=== PATIENT | male | born 1985 | race Caucasian/White ===

== ENCOUNTER 2016-09-24 15:02 | Emergency (ER) | payer BC ==
[2016-09-24 15:42] VITALS: BP 155/77
--- NOTE | 2016-09-24 15:53 | UC ---
Respiratory Complaint HPI - HPI Summary HPI Summary: Patient complains of sore throat, congestion, muscle aches, cough and sinus pressure for 2 days. Fever at 101.2 yesterday. Today 99.2. He admits to using cocaine for the first time 3 days ago and is wondering if that is what is causing his symptoms. States he has not taken anything for the symptoms. Flu was positive. - History of Current Complaint Chief Complaint: UCRespiratory Stated Complaint: COUGH,SORE THROAT,FEVER,CHILLS Hx Obtained From: Patient Onset/Duration: Sudden Onset Timing: Constant Severity Initially: Moderate Severity Currently: Moderate Pain Intensity: 5 Pain Scale Used: 0-10 Numeric Character: Cough: Nonproductive Associated Signs And Symptoms: Positive: Fever, Pleuritic Chest Pain, Wheezing, URI - Risk Factors Pulmonary Embolism Risk Factors: Negative Cardiac Risk Factors: Negative Pseudomonas Risk Factors: Negative Tuberculosis Risk Factors: Negative - Allergies/Home Medications Allergies/Adverse Reactions: Allergies Allergy/AdvReac Type Severity Reaction Status Date / Time Amoxicillin Allergy Hives Verified 09/24/16 15:32 Red Dye Allergy Hives Verified 09/24/16 15:32 Home Medications: Home Medications Hydrocodone-Acetaminophen [Vicodin 5-300 mg] 1 tab PO PRN 09/24/16 [History] Ibuprofen TAB* [Advil TAB*] 200 mg PO Q6H PRN 09/24/16 [History Confirmed ] Melatonin 1 mg PO BEDTIME 09/24/16 [History Confirmed 09/24/16] PMH/Surg Hx/FS Hx/Imm Hx Previously Healthy: Yes - Surgical History Surgical History: Yes Surgery Procedure, Year, and Place: circumcision age 21 yo - Family History Known Family History: Positive: None - Social History Occupation: Employed Full-time Lives: With Family Alcohol Use: Rare Alcohol Amount: once a month Substance Use Type: Cocaine, Marijuana Substance Use Comment - Amount & Last Used: occasional use, THIS WEEK WAS THE FIRST TIME HE EVER USED COCAINE. Smoking Status (MU): Current Some Day Smoker Amount Used/How Often: SOCIALLY Household Exposure Type: Cigarettes Review of Systems Constitutional: Fever, Fatigue Skin: Negative Eyes: Negative ENT: Sore Throat, Ear Ache, Nasal Discharge Respiratory: Shortness Of Breath, Cough Cardiovascular: Negative Gastrointestinal: Vomiting Genitourinary: Negative Motor: Other - muscle aches Neurovascular: Negative Musculoskeletal: Myalgia Neurological: Negative Psychological: Anxious All Other Systems Reviewed And Are Negative: Yes Physical Exam Triage Information Reviewed: Yes Appearance: No Pain Distress, Well-Nourished, Ill-Appearing Vital Signs: Initial Vital Signs Temp 99.2 F 09/24/16 15:36 Pulse 95 09/24/16 15:36 Resp 18 09/24/16 15:36 BP 155/77 09/24/16 15:36 Pulse Ox 99 09/24/16 15:36 Vital Signs Reviewed: Yes Eye Exam: Normal Eyes: Positive: Conjunctiva Clear ENT Exam: Normal ENT: Positive: Pharynx normal, Nasal congestion, Nasal drainage Neck exam: Normal Neck: Positive: Supple, Nontender, No Lymphadenopathy Respiratory Exam: Normal Respiratory: Positive: Chest non-tender, Lungs clear Cardiovascular Exam: Normal Musculoskeletal Exam: Normal Neurological Exam: Normal Neurological: Positive: Alert Psychological Exam: Normal Skin Exam: Normal UC Diagnostic Evaluation - Laboratory O2 Sat by Pulse Oximetry: 99 Respiratory Course/Dx - Course Course Of Treatment: POCT flu positive. Offered tamiflu. patient declined. Will follow up if symptoms fail to improve. Rest, fluids, zofran as needed, tylenol. - Differential Dx/Diagnosis Differential Diagnosis/HQI/PQRI: Bronchitis, Influenza, Sinusitis, Other Provider Diagnoses: Influenza - Physician Notification/Consults Instructed by Provider To: Have Pt Call For Appt. Discharge - Discharge Plan Condition: Stable Disposition: HOME Prescriptions: Ondansetron TAB* [Zofran Tab*] 4 mg PO Q6H PRN #15 tab MDD 4 PRN Reason: Nausea Patient Education Materials: Influenza (ED) Forms: *Work Release Referrals: Diann Phan PA [Primary Care Provider] - Additional Instructions: Tylenol as needed for pain and discomfort.
== END 2016-09-24 16:40 | disposition home or self-care (01) ==
LOC: UCCORT 15:02
DX: J11.1 Influenza due to unidentified influenza virus with other respiratory manifestations (principal); Z88.1 Allergy status to other antibiotic agents; F17.210 Nicotine dependence, cigarettes, uncomplicated
CPT/HCPCS: 87502; 87651; 99212; G0463

== ENCOUNTER 2017-10-14 11:56 | Emergency (ER) | payer BC ==
--- NOTE | 2017-10-14 13:13 | ED ---
Throat Pain/Nasal Congestion - HPI Summary HPI Summary: 32M presents with sore throat for three days. He states that he has a history of strept. He denies any fever. He admits to sinus congestion and occasionally cough. He took ibuprofen and Tylenol. He states the pain is causing him not to sleep well. He denies any fatigue, abdominal pain, nausea or vomiting. - History of Current Complaint Time Seen by Provider: 10/14/17 13:06 - Allergies/Home Medications Allergies/Adverse Reactions: Allergies Allergy/AdvReac Type Severity Reaction Status Date / Time Amoxicillin Allergy Hives Verified 10/14/17 13:19 Clavulanic Acid Allergy Hives Verified 10/14/17 13:19 [From Augmentin] Red Dye Allergy Hives Verified 10/14/17 13:19 PMH/Surg Hx/FS Hx/Imm Hx Endocrine/Hematology History: Denies: Hx Anticoagulant Therapy Respiratory History: Denies: Hx Asthma - Surgical History Surgery Procedure, Year, and Place: circumcision age 21 yo Infectious Disease History: Reports: History Other Infectious Disease - staph infection in R hand Denies: Traveled Outside the [place] in Last 30 Days - Family History Known Family History: Positive: None - Social History Alcohol Use: Rare Alcohol Amount: once a month Substance Use Type: Reports: Cocaine, Marijuana Substance Use Comment - Amount & Last Used: occasional use, THIS WEEK WAS THE FIRST TIME HE EVER USED COCAINE. Smoking Status (MU): Current Some Day Smoker Amount Used/How Often: SOCIALLY Review of Systems Negative: Fever Positive: Sore Throat, Nasal Discharge Negative: Chest Pain Positive: Cough. Negative: Shortness Of Breath All Other Systems Reviewed And Are Negative: Yes Physical Exam Triage Information Reviewed: Yes Vital Signs Reviewed: Yes Appearance: Positive: Well-Appearing Skin: Positive: Warm, Dry Head/Face: Positive: Normal Head/Face Inspection Eyes: Positive: Normal, EOMI, INOCENCIO, Conjunctiva Clear ENT: Positive: Pharyngeal erythema, TMs normal, Tonsillar swelling, Uvula midline, Other - soft palate symmetric. Negative: Tonsillar exudate, Trismus, Muffled voice Neck: Positive: Supple, Nontender, No Lymphadenopathy Respiratory/Lung Sounds: Positive: Clear to Auscultation, Breath Sounds Present Cardiovascular: Positive: Normal, RRR Abdomen Description: Positive: Nontender, Soft Bowel Sounds: Positive: Present Musculoskeletal: Positive: Normal Neurological: Positive: Normal Psychiatric: Positive: Normal EENT Course/Dx - Course Course Of Treatment: 32M presents with sore throat for three days. He states that he has a history of strept. He denies any fever. He admits to sinus congestion and occasionally cough. He took ibuprofen and Tylenol. He states the pain is causing him not to sleep well. He denies any fatigue, abdominal pain , nausea or vomiting. on exam pharynx erythema, uvula midline, soft palate symmetric. strep neg. patient declined and medication to help with sore throat and nasal discharge. patient blood pressure is pre-htn so will have established care with primary to follow up. medication reviewed. patient understand and agrees with plan. - Differential Diagnoses Differential Diagnoses: Pharyngitis, Tonsilitis, URI/Bronchitis - Diagnoses Provider Diagnoses: Pharyngitis Discharge - Discharge Plan Condition: Good Disposition: HOME Patient Education Materials: Pharyngitis (ED) Forms: *Work Release Referrals: [facility] [place] [facility] REFERRAL [Outside] Additional Instructions: Take Tylenol or ibuprofen for pain every 6 hours Use saline spray in nose as much as needed for nasal congestion Can gargle salt water Can use cough drops or products such as cloraseptic spray Establish care with primary care physician Return to ED if develop any new or worsening symptoms
[2017-10-14 13:18] VITALS: BP 135/96
== END 2017-10-14 13:45 | disposition home or self-care (01) ==
LOC: UCCORT 11:56
DX: J02.9 Acute pharyngitis, unspecified (principal); F17.200 Nicotine dependence, unspecified, uncomplicated
CPT/HCPCS: 87651; 99211; G0463

== ENCOUNTER 2018-04-23 13:45 | Emergency (ER) | payer BC ==
[2018-04-23 14:20] VITALS: BP 143/96
--- NOTE | 2018-04-23 14:45 | UC ---
Skin Complaint HPI - HPI Summary HPI Summary: C/O erythematous patch right lower abdomen with central pustule. ? spider bite or tick bite. - History of Current Complaint Chief Complaint: UCBiteInjury Time Seen by Provider: 04/23/18 14:37 Stated Complaint: POSSIBLE TICK BITE RIGHT HIP Hx Obtained From: Patient Onset/Duration: Sudden Onset, Lasting Days - 1, Worse Since - today Onset Severity: Mild Current Severity: Moderate Pain Intensity: 0 Location: Discrete - Right lower abdominal wall Character: Swelling, Pain, Redness, Raised Aggravating Factor(s): Touch Alleviating Factor(s): Nothing Associated Signs & Symptoms: Positive: Diaphoresis, Tenderness Related History: Possible Reaction to: Insect - Allergy/Home Medications Allergies/Adverse Reactions: Allergies Allergy/AdvReac Type Severity Reaction Status Date / Time amoxicillin [From Augmentin] Allergy Hives Verified 04/23/18 14:16 clavulanic acid Allergy Hives Verified 04/23/18 14:16 [From Augmentin] red dye Allergy Hives Verified 04/23/18 14:16 Home Medications: Home Medications Melatonin/Pyridoxine HCl (B6) [Melatonin 5 mg Tablet] 10 - 15 tab PO BEDTIME 01/05 [History Confirmed 04/23/18] Methylphenidate TAB* [Ritalin TAB*] 5 mg PO TID 04/23/18 [History Confirmed 01/05] Review of Systems Constitutional: Fatigue Skin: Rash Is Patient Immunocompromised?: No All Other Systems Reviewed And Are Negative: Yes PMH/Surg Hx/FS Hx/Imm Hx Psychological History: Anxiety Other History Of: Negative For: Anticoagulant Therapy - Surgical History Surgical History: Yes Surgery Procedure, Year, and Place: circumcision age 21 yo - Family History Known Family History: Positive: Cardiac Disease, Hypertension, Diabetes - Social History Occupation: Employed Full-time Lives: With Family Alcohol Use: Rare Alcohol Amount: once a month Substance Use Type: None Substance Use Comment - Amount & Last Used: occasional use, THIS WEEK WAS THE FIRST TIME HE EVER USED COCAINE. Smoking Status (MU): Never Smoked Tobacco Amount Used/How Often: SOCIALLY Household Exposure Type: Cigarettes Physical Exam Triage Information Reviewed: Yes Appearance: Well-Appearing, No Pain Distress, Well-Nourished Vital Signs: Initial Vital Signs Temp 98.5 F 04/23/18 14:12 Pulse 90 04/23/18 14:12 Resp 16 04/23/18 14:12 BP 143/96 04/23/18 14:12 Pulse Ox 100 04/23/18 14:12 Vital Signs Reviewed: Yes Eyes: Positive: Conjunctiva Clear Neck exam: Normal Respiratory Exam: Normal Cardiovascular Exam: Normal Musculoskeletal Exam: Normal Neurological Exam: Normal Psychological Exam: Normal Skin: Positive: Other - 4x2 cm erythematous patch with central swelling and tenderness. Course/Dx - Differential Diagnoses - Skin Complaint Differential Diagnoses: Abscess, Cellulitis, Impetigo, Tick Born Illness - Diagnoses Provider Diagnoses: Cellulitis right lower abdomen Discharge - Sign-Out/Discharge Documenting (check all that apply): Patient Departure - Discharge Plan Condition: Stable Disposition: HOME Prescriptions: DOXYcycline CAP(*) [DOXYcycline 100MG CAP(*)] 100 mg PO BID #20 cap Patient Education Materials: Cellulitis (ED), Doxycycline (By mouth) Referrals: No Primary Care Phys,NOPCP [Primary Care Provider] - - Billing Disposition and Condition Condition: STABLE Disposition: Home
== END 2018-04-23 15:03 | disposition home or self-care (01) ==
LOC: UCCORT 13:45
DX: L03.311 Cellulitis of abdominal wall (principal); Z88.0 Allergy status to penicillin; Z88.8 Allergy status to other drugs, medicaments and biological substances; F41.9 Anxiety disorder, unspecified
CPT/HCPCS: 99212; G0463